=== PATIENT | male | born 1950 | race Caucasian/White ===

== ENCOUNTER 2016-12-21 11:49 | Inpatient (IN) | payer OTHER, MEDICARE ==
[~2016-12-21] VITALS: Ht 185.4 cm; Wt 105.9 kg
[2016-12-21 12:47] LABS: BASOPHILS 0.1 % (0.0-2.0); EOSINOPHILS 0.3 % (0-7); HEMATOCRIT 36.6 % (42.0-54.0); IMMATURE GRANULOCYTES 0.6 % (0-5); LYMPHOCYTES 9.5 % (15-50); MCH 28.7 pg (26.0-34.0); MCHC 32.8 g/dL (31.0-37.0); MCV 87.6 fL (80.0-100.0); MONOCYTES 8.1 % (2-11); NEUTROPHILS 81.4 % (40-80); PLATELET COUNT 192 10x3/uL (130-400); RBC 4.18 10x6/uL (4.20-6.10); RDW 12.7 % (11.5-14.5); WBC 9.1 10x3/uL (4.8-10.8)
[2016-12-21 13:15] LABS: APTT 32.5 SECONDS (22.8-39.4); INR 1.14 (0.85-1.17); PROTIME 14.5 SECONDS (11.6-15.0)
[2016-12-21 13:17] LABS: ALBUMIN 3.3 g/dL (3.4-5.0); ALKALINE PHOSPHATASE 168 U/L (46-116); ALT (SGPT) 651 U/L (10-68); BILIRUBIN - TOTAL 0.62 mg/dL (0.2-1.3); CALC OSMOLALITY 280 mosm/kg (275-300); CALCIUM 8.8 mg/dL (8.5-10.1); CARBON DIOXIDE 24.2 mmol/L (21.0-32.0); CHLORIDE - SERUM 104 mmol/L (98-107); CREATININE - SERUM 1.7 mg/dL (0.6-1.3); GLUCOSE 176 mg/dL (74-106); PROTEIN - SERUM 6.9 g/dL (6.4-8.2); SODIUM 136 mmol/L (136-145); UREA NITROGEN 27 mg/dL (7-18); eGFR NON AFRICAN AMERICAN 43 mL/min (90-120)
[2016-12-21 13:24] LABS: TROPONIN-I < 0.017 ng/mL (0.000-0.060)
[2016-12-21 18:10] VITALS: BP 151/83; Ht 185.4 cm; Wt 105.9 kg
[2016-12-21 19:00] VITALS: BP 156/95
[2016-12-21 19:27] LABS: % SATURATION 15 % (15-55); IRON 45 ug/dl (35-150); TOTAL IRON BIND CAPACITY 291 ug/dl (260-445); UNSAT IRON BIND CAPACITY 246 ug/dl (150-375)
--- NOTE | 2016-12-21 19:41 | NUR ---
PATIENT BEING TAKEN DOWN TO X-RAY. PATIENT REQUESTED HIS INSULIN AND A SANDWICH WHEN HE COMES BACK.
[2016-12-21 19:46] LABS: APPEARANCE CLEAR (CLEAR); BACTERIA FEW /hpf (NONE SEEN); BILIRUBIN NEGATIVE (NEGATIVE); COLOR YELLOW (YELLOW); EPITHELIAL CELLS 0-5 /hpf (0-5); GLUCOSE NEGATIVE (NEGATIVE); KETONE NEGATIVE (NEGATIVE); LEUKOCYTE ESTERASE NEGATIVE (NEGATIVE); NITRITE NEGATIVE (NEGATIVE); PROTEIN 1+ mg/dL (NEGATIVE); UROBILINOGEN NORMAL (NORMAL); WHITE CELLS - URINE 0-5 /hpf (0-5)
[2016-12-21 21:30] LABS: CKMB 5.8 U/L (0.0-3.6); CREATINE KINASE 462 UL (21-232)
[2016-12-21 21:35] LABS: TROPONIN-I < 0.017 ng/mL (0.000-0.060)
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
[2016-12-22] VITALS (8 sets, daily range): BP systolic 168–197; BP diastolic 87–102
[2016-12-22 02:23] LABS: CKMB 3.6 U/L (0.0-3.6); CREATINE KINASE 424 UL (21-232)
[2016-12-22 02:36] LABS: TROPONIN-I < 0.017 ng/mL (0.000-0.060)
[2016-12-22 05:15] LABS: BASOPHILS 0.1 % (0.0-2.0); EOSINOPHILS 0.4 % (0-7); HEMATOCRIT 35.3 % (42.0-54.0); HEMOGLOBIN 11.5 g/dL (13.5-17.5); IMMATURE GRANULOCYTES 0.2 % (0-5); LYMPHOCYTES 18.9 % (15-50); MCH 28.7 pg (26.0-34.0); MCHC 32.6 g/dL (31.0-37.0); MEAN PLATELET VOLUME 10.1 fL (7.4-10.4); MONOCYTES 12.1 % (2-11); NEUTROPHILS 68.3 % (40-80); PLATELET COUNT 211 10x3/uL (130-400); RBC 4.01 10x6/uL (4.20-6.10); RDW 12.5 % (11.5-14.5); WBC 9.3 10x3/uL (4.8-10.8)
[2016-12-22 05:43] LABS: ALBUMIN 2.9 g/dL (3.4-5.0); ANION GAP 13.7 mmol/L (8-16); BILIRUBIN - TOTAL 0.47 mg/dL (0.2-1.3); CALCIUM 8.8 mg/dL (8.5-10.1); CARBON DIOXIDE 25.3 mmol/L (21.0-32.0); CREATININE - SERUM 1.7 mg/dL (0.6-1.3); PROTEIN - SERUM 6.5 g/dL (6.4-8.2)
--- NOTE | 2016-12-22 07:00 | NUR ---
REPORT RECEIVED FROM ENFORCEMENT MANAGER NURSE. CALL LIGHT IN REACH.
[2016-12-22 08:15] LABS: CKMB 2.6 U/L (0.0-3.6); CREATINE KINASE 402 UL (21-232)
[2016-12-22 08:16] LABS: TROPONIN-I < 0.017 ng/mL (0.000-0.060)
[2016-12-22] MEDS ORDERED: AUGMENTIN 500-11 TA1 PO (09:52)
[2016-12-22] MEDS ORDERED: MAXITROL EYE DRO5 ML EACH EYE (09:53)
[2016-12-22] MEDS ORDERED: PHENERGAN25 M1 PO (09:54)
[2016-12-22] MEDS ORDERED: MEDROL DOSE PACK4 MG PO (09:55)
[2016-12-22] MEDS ORDERED: MECLIZINE HCL25 MG PO (09:55)
[2016-12-22] MEDS ORDERED: [UNRECOGNIZED DRUG - OTHER] RC (09:55)
[2016-12-22] MEDS ORDERED: DIFLUCAN200 MG PO (09:56)
[2016-12-22] MEDS ORDERED: TRIAMCINOLONE A60 M1 TP (09:57)
[2016-12-22] MEDS ORDERED: CHERATUSSIN AC473 ML PO (09:57)
[2016-12-22] MEDS ORDERED: ZITHROMAX TRI-500 MG PO (09:58)
[2016-12-22] MEDS ORDERED: ULTRAM50 MG PO (09:58)
[2016-12-22] MEDS ORDERED: ADVIL COLD & SI1 TAB PO (09:58)
--- NOTE | 2016-12-22 09:58 | NUR ---
ASSESSMENT COMPLETED. SCDs TO BLE. MED LIST OBTAINED FROM DR. PENA'S OFFICE. WILL GO OVER EACH MED ONE BY ONE WITH PATIENT. CALL LIGHT IN REACH. WILL CONTINUE WITH PLAN OF CARE.
[2016-12-22] MEDS ORDERED: LOMOTIL TABLET1 TAB PO (09:59)
[2016-12-22] MEDS ORDERED: ZOFRAN4 MG PO (09:59)
[2016-12-22] MEDS ORDERED: CELEXA20 MG PO (10:00)
[2016-12-22] MEDS ORDERED: CYCLOBENZAPRINE10 MG PO (10:00)
[2016-12-22] MEDS ORDERED: ZOFRAN ODT4 MG/UDTAB PO (10:00)
[2016-12-22] MEDS ORDERED: HUMULIN 70100 UNIT/1 SC ×2 (10:01→10:02)
[2016-12-22] MEDS ORDERED: ZOFRAN8 MG PO (10:01)
[2016-12-22] MEDS ORDERED: NEURONTIN 300300 MG PO (10:02)
[2016-12-22] MEDS ORDERED: PRINIVIL20 MG PO ×2 (10:03)
[2016-12-22] MEDS ORDERED: NIFEDIPINE ER60 MG PO ×2 (10:03→12:40)
[2016-12-22] MEDS ORDERED: BAYER CHEWABLE81 MG PO (10:04)
--- NOTE | 2016-12-22 10:14 | NUR ---
C/O PAIN OF 7. NORCO 5 MG PO. DESIREE RICHARDS, IN ROOM. CALL LIGHT IN REACH.
--- NOTE | 2016-12-22 10:19 | NUR ---
IS GIVEN TO PATIENT AND EXPLAINED USE WITH RETURN DEMONSTRATION.
--- NOTE | 2016-12-22 11:10 | NUR ---
HOME MEDS DISCUSSED WITH PATIENT THOROUGHLY AND MED LIST CORRECTED AND UPDATED PER PATIENT'S REQUEST. STATES MOST OF THE MEDS FROM MD OFFICE WASN'T CORRECT.
[2016-12-22] MEDS ORDERED: OMEPRAZOLE20 M1 PO (12:07)
[2016-12-22] MEDS ORDERED: LIPITOR10 MG PO (12:07)
--- NOTE | 2016-12-22 13:14 | NUR ---
MORPHINE 2 MG SIVP PER C/O PAIN OF 7. BP MEDS PO. 45 UNITS 70/30 SUBQ TO LEFT ARM. BED ALARM TURNED ON. WILL PLACE LIDOCAINE PATCH ON AFTER PAIN MED KICKS IN PER PATIENT REQUEST. CALL LIGHT IN REACH.
--- NOTE | 2016-12-22 14:20 | NUR ---
PATIENT AWAKE, ALERT AND ORIENTED X'S 4. RESPIRATIONS ARE EVEN AND UNLABORED ON ROOM AIR. NO SIGNS OF DISTRESS NOTED. CNAS ARE IN ROOM CLEANING UP PATIENT AND CHANGING HIS LINENS. PATIENT DENIES NEEDS AT THIS TIME.
--- NOTE | 2016-12-22 14:26 | NUR ---
BED BATH GIVEN PER CNAs. FLEXERIL 10 MG PO. STILL REFUSING TO TURN OR GET UP.
--- NOTE | 2016-12-22 14:32 | NUR ---
GABAPENTIN PO. CALLED PT TO SEE IF THEY CAN ASSIST WITH ORTHOSTATIC BP BECAUSE PATIENT IS REFUSING TO ALLOW US TO DO IT.
--- NOTE | 2016-12-22 15:27 | NUR ---
Rehab Prescreening Consult recieved and the chart has been reviewed. According to the record [facility]. The [place] will not cover inpatient rehab at [facility]. I spoke to Linh in ER registration who says she will look into it to determine if patient has another payor source. [place] Valerio RN Clinical Liaison, Rehab
--- NOTE | 2016-12-22 15:39 | NUR ---
ORTHOSTATIC BPs DONE WITH ASSISTANCE FROM PT.
--- NOTE | 2016-12-22 16:48 | NUR ---
CM SPOKE WITH [facility] REGARDING BED AVAILABILITY FOR PATIENT. JASON WAS INSTRUCTED TO CALL IN AM AND ASK FOR BED CONTROL (ARIANE). ([phone])
--- NOTE | 2016-12-22 17:00 | NUR ---
FSBS 182. HUMALOG 2 UNITS AND 25 UNITS 70/30 SUBQ TO LEFT ARM. CALL LIGHT IN REACH.
--- NOTE | 2016-12-22 18:02 | NUR ---
NO CHANGES IN INITIAL ASSESSMENT. SCDs TO BLE. BED ALARM ON. CALL LIGHT IN REACH. WILL CONTINUE WITH PLAN OF CARE.
--- NOTE | 2016-12-22 19:30 | NUR ---
PATIENT RESTING IN BED AND DENIES NEEDS AT THIS TIME. BED IN LOWEST POSITION AND CALL LIGHT WITHIN REACH.
[2016-12-23] VITALS: BP 171/92
[2016-12-23 04:00] VITALS: BP 152/89
[2016-12-23 05:48] LABS: BASOPHILS 0.1 % (0.0-2.0); EOSINOPHILS 0.6 % (0-7); HEMATOCRIT 36.2 % (42.0-54.0); HEMOGLOBIN 11.8 g/dL (13.5-17.5); IMMATURE GRANULOCYTES 0.2 % (0-5); LYMPHOCYTES 14.8 % (15-50); MCH 28.9 pg (26.0-34.0); MCHC 32.6 g/dL (31.0-37.0); MCV 88.5 fL (80.0-100.0); MEAN PLATELET VOLUME 10.1 fL (7.4-10.4); NEUTROPHILS 71.3 % (40-80); PLATELET COUNT 216 10x3/uL (130-400); RBC 4.09 10x6/uL (4.20-6.10); RDW 12.7 % (11.5-14.5); WBC 10.5 10x3/uL (4.8-10.8)
[2016-12-23 06:44] LABS: ANION GAP 16.2 mmol/L (8-16); BILIRUBIN - TOTAL 1.27 mg/dL (0.2-1.3); CALCIUM 8.6 mg/dL (8.5-10.1); CARBON DIOXIDE 22.7 mmol/L (21.0-32.0); CREATININE - SERUM 1.6 mg/dL (0.6-1.3); POTASSIUM - SERUM 4.9 mmol/L (3.5-5.1); PROTEIN - SERUM 6.2 g/dL (6.4-8.2)
--- NOTE | 2016-12-23 07:30 | NUR ---
REPORT RECEIVED FROM LABORATORY DEVELOPMENT TECHNICIAN NURSE. CALL LIGHT IN REACH.
--- NOTE | 2016-12-23 07:36 | NUR ---
45 units nph given per mar, sanjeev well, denies need, cl in reach
[2016-12-23 08:15] VITALS: BP 187/84
--- NOTE | 2016-12-23 08:48 | NUR ---
12/23/2016 8:44 CM: Case Management Phone call to [facility] - spoke with Norah. Patient remains on their list for transfer. No bed currently available. They will contact nursing unit when/if bed becomes available. No need for daily phone calls to [facility].
--- NOTE | 2016-12-23 09:08 | NUR ---
ASSESSMENT COMPLETED. NORCO PO WITH AM MEDS ADMINISTERED. SCDs TO BLE. BED ALARM ON. BECAME NUASEATED AFTER PT TRIED TO GET HIM UP SO NEDAAN ADMINISTERED IVP. CALL LIGHT IN REACH. WILL CONTINUE WITH PLAN OF CARE.
[2016-12-23 10:20] LABS: FOLATE (FOLIC ACID) - SERUM 11.6 ng/mL (>3.0)
--- NOTE | 2016-12-23 10:20 | NUR ---
pt seen and assessed for PROPERTY CONSULTANT at 1015. currently up in chair at bedside. states uncomfortable but tolerable. scds on bilat. call light in reach.
[2016-12-23] MEDS ORDERED: LIDODERM 5 %1 PATCH TRANSDERM (11:58)
--- NOTE | 2016-12-23 12:20 | NUR ---
IN ROOM VISITING PATIENT AT THIS TIME. CALL LIGHT IN REACH.
[2016-12-23 12:26] VITALS: BP 157/87
--- NOTE | 2016-12-23 12:59 | NUR ---
12/23/2016 12:57 DCP: Discharge Planning Rec'd call from [place] with inpatient rehab - patient has been evaluated and accepted. Waiting bed assignment.
--- NOTE | 2016-12-23 13:40 | NUR ---
NO NEEDS VOICED AT THIS TIME. WILL GO TO REHAB WHEN THEY GET A ROOM AVAILABE. PATIENT IS AWARE.
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
--- NOTE | 2016-12-23 15:18 | NUR ---
GABAPENTIN AND NORCO PO. CALL LIGHT IN REACH.
[2016-12-23 15:40] VITALS: BP 163/88
--- NOTE | 2016-12-23 17:19 | NUR ---
INUSLIN GIVEN PER ORDER. ON BEDPAN AT THIS TIME. CALL LIGHT IN REACH.
--- NOTE | 2016-12-23 18:20 | NUR ---
REPORT CALLED TO CYRUS GRAVES, IN REHAB.
--- NOTE | 2016-12-23 18:47 | NUR ---
DC'D TO REHAB VIA WC.
--- NOTE | 2016-12-25 08:47 | CN ---
PATIENT NAME:FOUZIA MIRANDA MEDICAL RECORD: [id number] : 46 LOCATION:[facility] ADMIT DATE: 12/22/16 ACCOUNT: [id number] CONSULTING PHYSICIAN: NICOLE ESTRADA MD REFERRING PHYSICIAN: DENIA GOMEZ M.D. DATE OF CONSULTATION: 12/22/2016 Cardiology Consultation DIAGNOSIS: Syncope. HISTORY OF PRESENT ILLNESS: This is a gentleman with no previous cardiac history. He had an episode of syncope. This is not his first episode of syncope. He has had 2 in the past. He is followed at the [facility] for this. There is no clear diagnosis as the etiology of the syncope. He did not have any chest pain, chest discomfort or palpitations prior to the syncope. Troponin is normal. EKG is with nonspecific ST-T abnormalities. OVERALL IMPRESSION: Syncope. I do not think this is cardiac in nature. At this time, no other cardiac workup or treatment is necessary. TRANSINT:[id number] Voice Confirmation ID: [id number] DOCUMENT ID: [id number] NICOLE ESTRADA MD at 0847 CC: [id number] DICTATION DATE: 12/22/16 0903 TRAIN CALLER: 12/22/16 0912 DIS IN 12/23/16 [place] [id number] [place] [address]
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
== END 2016-12-23 18:47 | DRG 184 ==
LOC: D.ER 11:49 → D.MS 16:29 → OBSVTIME 16:30 → D.MS 12-22 12:45
PROVIDERS: Emergency Medicine Emergency Medical Services; ADMIT Family Medicine
DX: S22.42XA Multiple fractures of ribs, left side, initial encounter for closed fracture (principal); N17.9 Acute kidney failure, unspecified; R55 Syncope and collapse; D64.9 Anemia, unspecified; R74.0 Nonspecific elevation of levels of transaminase and lactic acid dehydrogenase [LDH]; R74.8 Abnormal levels of other serum enzymes; I10 Essential (primary) hypertension; K21.9 Gastro-esophageal reflux disease without esophagitis; E11.65 Type 2 diabetes mellitus with hyperglycemia; V49.9XXA Car occupant (driver) (passenger) injured in unspecified traffic accident, initial encounter

== ENCOUNTER 2016-12-23 17:03 | Inpatient (IN) | payer OTHER, MEDICARE ==
[~2016-12-23] VITALS: Ht 185.4 cm; Wt 107.0 kg
[~2016-12-23 17:03] MED LIST: ADVIL COLD & SI1 TAB PO; AUGMENTIN 500-11 TA1 PO; BAYER CHEWABLE81 MG PO; CELEXA20 MG PO; CHERATUSSIN AC473 ML PO; CYCLOBENZAPRINE10 MG PO; DIFLUCAN200 MG PO; HUMULIN 70100 UNIT/1 SC; LIDODERM 5 %1 PATCH TRANSDERM; LIPITOR10 MG PO; LOMOTIL TABLET1 TAB PO; MAXITROL EYE DRO5 ML EACH EYE; MECLIZINE HCL25 MG PO; MEDROL DOSE PACK4 MG PO; NEURONTIN 300300 MG PO; NIFEDIPINE ER60 MG PO; OMEPRAZOLE20 M1 PO; PHENERGAN25 M1 PO; PRINIVIL20 MG PO; TRIAMCINOLONE A60 M1 TP; ULTRAM50 MG PO; ZITHROMAX TRI-500 MG PO; ZOFRAN ODT4 MG/UDTAB PO; ZOFRAN4 MG PO; ZOFRAN8 MG PO; [UNRECOGNIZED DRUG - OTHER] RC
[2016-12-23 19:00] VITALS: BP 156/77
--- NOTE | 2016-12-23 19:00 | NUR ---
PT ARRIVED ON UNIT ACCOMPANIED BY HOSPITAL STAFF. PT IS ALERT, ORIENTED X 4, HAS DIFFICULTY TRANSFERRING FROM W/C TO BED. PT STATES HE HAS A GREAT AMOUNT OF PAIN AND FEELS VERY WEAK, RESPIRATIONS REGULAR AND UNLABORED, CONVERSIVE, STATES HE IS READY FOR REHAB. VISITING WITH NEIGHBOR.
--- NOTE | 2016-12-23 22:00 | NUR ---
ASSESSMENT AND PT HISTORY COMPLETED, PT VERY CONVERSIVE, FORMS SIGNED, PT STATES HE DOES WEAR A KNEE BRACE TYPICALLY AT HOME, HOWEVER DOESN'T HAVE IT WITH HIM. pT HAS SOME STRUGGLES WITH PRONUNCTIATION OF WORDS OR STATING THE CORRECT TERM. PT COMPENSATES. AT TIMES DIFFICULT TO KEEP PATIENT FOCUSED ON ADMISSION PROCESS.
[2016-12-23 22:37] VITALS: BP 156/77
--- NOTE | 2016-12-24 03:07 | NUR ---
PT USES URINAL, STATES HAS MORE FREQUENCY RELATED TO IMPLANT. PT CONVERSIVE.
--- NOTE | 2016-12-24 06:33 | NUR ---
PT RESTING QUIETLY, PT STATES HE FEELS HE NEEDS SOMETHING FOR PAIN. NO OTHER PAIN MED ORDERED, LEFT MESSAGE FOR PHYSICIAN.
--- NOTE | 2016-12-24 07:23 | NUR ---
RESTING QUIETLY IN BED. CALL LIGHT IN REACH
[2016-12-24 07:59] LABS: BASOPHILS 0.1 % (0.0-2.0); EOSINOPHILS 0.9 % (0-7); HEMATOCRIT 35.5 % (42.0-54.0); HEMOGLOBIN 11.6 g/dL (13.5-17.5); IMMATURE GRANULOCYTES 0.3 % (0-5); LYMPHOCYTES 14.6 % (15-50); MCH 28.7 pg (26.0-34.0); MCHC 32.7 g/dL (31.0-37.0); MCV 87.9 fL (80.0-100.0); MEAN PLATELET VOLUME 10.1 fL (7.4-10.4); MONOCYTES 9.3 % (2-11); NEUTROPHILS 74.8 % (40-80); PLATELET COUNT 214 10x3/uL (130-400); RBC 4.04 10x6/uL (4.20-6.10); RDW 12.6 % (11.5-14.5); WBC 10.5 10x3/uL (4.8-10.8)
--- NOTE | 2016-12-24 08:00 | NUR ---
PT RESTING IN BED WITH EYES OPEN CALL LIGHT IN REACH WILL MONITER PT EATING BREAKFAST REFUSES TO SET UP PAST 20 DEGREES SAYS IT HURTS TO BAD
[2016-12-24 08:20] VITALS: BP 184/86
[2016-12-24 08:21] LABS: ALBUMIN 2.8 g/dL (3.4-5.0); ANION GAP 14.8 mmol/L (8-16); BILIRUBIN - TOTAL 0.44 mg/dL (0.2-1.3); CALCIUM 8.5 mg/dL (8.5-10.1); CARBON DIOXIDE 23.4 mmol/L (21.0-32.0); CREATININE - SERUM 1.5 mg/dL (0.6-1.3); POTASSIUM - SERUM 5.2 mmol/L (3.5-5.1); PROTEIN - SERUM 5.8 g/dL (6.4-8.2)
--- NOTE | 2016-12-24 13:17 | NUR ---
PT RESTING IN BED WITH EYES OPEN CALL LIGHT IN REACH WILL MONITER
[2016-12-24 14:59] VITALS: Ht 185.4 cm; Wt 107.0 kg
--- NOTE | 2016-12-24 18:41 | NUR ---
PT RESTING IN BED WITH EYES OPEN CALL LIGHT IN REACH WILL MONITER
[2016-12-24 19:00] VITALS: BP 147/99
--- NOTE | 2016-12-24 21:20 | NUR ---
PT TOOK HS MEDS WITHOUT DIFFICULTY. PT DENIES NEEDS AT THIS TIME. BED LOW. CL IN REACH.
--- NOTE | 2016-12-25 01:15 | NUR ---
PT RESTING, EYES CLOSED. BED LOW. CLIN [facility].
[2016-12-25 07:02] LABS: BASOPHILS 0.1 % (0.0-2.0); EOSINOPHILS 0.8 % (0-7); HEMOGLOBIN 13.2 g/dL (13.5-17.5); IMMATURE GRANULOCYTES 0.3 % (0-5); MCH 29.3 pg (26.0-34.0); MCHC 33.8 g/dL (31.0-37.0); MCV 86.7 fL (80.0-100.0); MONOCYTES 9.3 % (2-11); NEUTROPHILS 68.5 % (40-80); RDW 12.6 % (11.5-14.5)
[2016-12-25 07:10] LABS: PLATELET COUNT 270 10x3/uL (130-400); WBC 14.2 10x3/uL (4.8-10.8)
[2016-12-25 07:16] LABS: ANION GAP 16.6 mmol/L (8-16); CALCIUM 9.5 mg/dL (8.5-10.1); POTASSIUM - SERUM 4.6 mmol/L (3.5-5.1)
--- NOTE | 2016-12-25 07:30 | NUR ---
RESTING QUIETLY IN BED CALL LIGHT IN REACH
--- NOTE | 2016-12-25 08:15 | NUR ---
PT RESTING IN BED WITH EYES OPEN CALL LIGHT IN REACH WILL MONITER
[2016-12-25 08:20] VITALS: BP 178/91
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
--- NOTE | 2016-12-25 12:15 | NUR ---
PT RESTING IN BED WITH EYES OPEN CALL LIGHT IN REACH WILL MONITER
--- NOTE | 2016-12-25 17:41 | NUR ---
PT RESTING IN BED WITH EYES OPEN CALL LIGHT IN REACH NO PROBLEMS WILL MONITER
[2016-12-25 19:30] VITALS: BP 123/64
--- NOTE | 2016-12-25 22:00 | NUR ---
PT TOOK HS MEDS WITHOUT DIFFICULYT. PT REQ AND REC'D PRN PAIN MEDICATION PER ORDERS AT THIS TIME. PT STATES HE HAS NOT HAD ANY MORE HALLUCINATIONS TODAY AND IS READY FOR BED. WCTM. BED LOW. CL IN REACH.
--- NOTE | 2016-12-26 02:00 | NUR ---
PT RESTING, EYES CLOSED. BED LOW. CL IN REACH. WCTM.
[2016-12-26 07:00] VITALS: BP 164/80
--- NOTE | 2016-12-26 07:00 | NUR ---
Pt. was received at the beginning of this shift sitting in wheelchair in room. Pt. doesn't voice any complaints or concerns. Vital signs: Temp. 98.8, pulse 95, resp. 18, b/p 164/80, 02Sat. 95%. He is friendly and socializes with his roommate very well. Call light is in reach. No signs of any discomfort or distress. Will continue to monitor and assist prn with adl's.
--- NOTE | 2016-12-26 17:26 | NUR ---
Pt. has an uneventful day today. He went to therapy to participated well. Blood sugar levels were checked bid. Pt. stable and monitored.
--- NOTE | 2016-12-26 18:04 | NUR ---
Pt. received help with a shower today. Complete bed change done as well.
--- NOTE | 2016-12-26 19:35 | NUR ---
IN BED ALERT. TALKING ON PHONE. NO C/O AT THIS TIME.
--- NOTE | 2016-12-26 21:20 | NUR ---
AWAKE. DENIES NEEDS.
[2016-12-26 22:35] VITALS: BP 136/75
--- NOTE | 2016-12-26 22:35 | NUR ---
ASSESSMENT AND HS MEDS COMPLETE. GAVE PATIENT NORCO 10/325 X1 TAB PO FOR PAIN LEVEL OF 6/10 IN LEFT RIBS AND BACK.
--- NOTE | 2016-12-27 | NUR ---
PATIENT AWAKE, TALKING TO HIS ROOMMATE. ENCOURAGE BOTH TO TRY TO GO TO SLEEP.
--- NOTE | 2016-12-27 02:05 | NUR ---
RESTING QUIETLY, EYES CLOSED.
--- NOTE | 2016-12-27 04:50 | NUR ---
RESTING IN BED, EYES CLOSED. RESPIRING QUIETLY.
--- NOTE | 2016-12-27 06:45 | NUR ---
RESTING IN BED, EYES CLOSED.
--- NOTE | 2016-12-27 07:30 | NUR ---
PATIENT AWAKE, ALERT AND ORIENTED X'S 4. ASSESSMENT COMPLETED AT THIS TIME. ASSISTED PATIENT FROM THE BED TO THE WHEELCHAIR PER PATIENT REQUEST. PATIENT REQUIRED MINIMUM ASSISTANCE. PATIENT REQUESTED TO SIT IN THE WHEELCHAIR. POSITIONED BEDSIDE TABLE IN FRONT OF PATIENT CALL LIGHT IN REACH. PATIENT DENIES FURTHER NEEDS AT THIS TIME
[2016-12-27 08:00] VITALS: BP 147/73
--- NOTE | 2016-12-27 12:07 | NUR ---
PATIENT SITTING UP IN THE CHAIR EATING LUNCH. STATED HE WANTS TO GO BACK TO BED AFTER LUNCH. TOLD PATIENT TO CALL ME WHEN HE FINISHES EATING.
--- NOTE | 2016-12-27 12:45 | NUR ---
ASSISTED PATIENT FROM THE WHEELCHAIR BACK TO BED. BED IN LOWEST POSITION, CALL LIGHT IN REACH. BED RAILS UP X'S 2. PATIENT DENIES NEEDS. HOB 40 DEGREES.
--- NOTE | 2016-12-27 19:00 | NUR ---
SITTING UP IN W/C AT BEDSIDE. DENIES NEEDS.
[2016-12-27 20:20] VITALS: BP 119/77
--- NOTE | 2016-12-27 20:20 | NUR ---
ASSESSMENT AND HS MEDS COMPLETEREMAINS UP IN W/C AT BEDSIDE. DENIES NEEDS.
--- NOTE | 2016-12-27 21:54 | NUR ---
ASSISTED PATIENT TO TRANSFER W/C TO BED. HOB UP 30 DEGREES. DENIES FURTHER NEEDS.
--- NOTE | 2016-12-27 23:45 | NUR ---
RESTING IN BED, EYES CLOSED.
--- NOTE | 2016-12-28 01:50 | NUR ---
RESTING IN BED, EYES CLOSED. NO DISTRESS NOTED.
--- NOTE | 2016-12-28 04:00 | NUR ---
RESTING QUIETLY IN BED, EYES CLOSED. RESPIRATION ARE UNLABORED.
--- NOTE | 2016-12-28 05:39 | NUR ---
RESTING IN BED, EYES CLOSED. FSBS @ 0505 WAS 166. PATIENT TO RECEIVE SCHEDULED NOVOLIN 70/30 INSULIN ON DAY SHIFT @ 0730.
[2016-12-28 06:19] LABS: BASOPHILS 0.2 % (0.0-2.0); EOSINOPHILS 2.6 % (0-7); HEMATOCRIT 32.3 % (42.0-54.0); HEMOGLOBIN 10.7 g/dL (13.5-17.5); IMMATURE GRANULOCYTES 0.2 % (0-5); LYMPHOCYTES 19.9 % (15-50); MCH 29.1 pg (26.0-34.0); MCHC 33.1 g/dL (31.0-37.0); MCV 87.8 fL (80.0-100.0); MONOCYTES 11.1 % (2-11); PLATELET COUNT 299 10x3/uL (130-400); RBC 3.68 10x6/uL (4.20-6.10); RDW 12.8 % (11.5-14.5); WBC 9.3 10x3/uL (4.8-10.8)
[2016-12-28 06:43] LABS: CALCIUM 8.7 mg/dL (8.5-10.1); CARBON DIOXIDE 21.8 mmol/L (21.0-32.0); POTASSIUM - SERUM 4.8 mmol/L (3.5-5.1)
--- NOTE | 2016-12-28 07:00 | NUR ---
Pt was received at the beginning of this shift sitting in wheelchair in room. Awake and oriented x 3. Vital signs: Temp. 98.6, pulse 80, resp. 16, b/p 142/88, 02Sat. 98%. No verbal complaints or concerns at this time. Stable condition observed. Will continue to monitor and assist with adl's prn. Call light in reach.
[2016-12-28 10:34] VITALS: BP 142/88
--- NOTE | 2016-12-28 14:44 | NUR ---
Pt. had a shower this morning with OT assisting him. Complete linen change done. Pt. is alert and oriented x 3. He is having an uneventful day. Friendly and cooperative. Blood sugar level monitored closely.
--- NOTE | 2016-12-28 18:32 | NUR ---
Pt. has had a good day. He does complain of great pain in his ribs when he goes from a lying position to a sitting up position in bed. He doesn't ask for any pain medication though. Call light is in reach.
[2016-12-28 19:00] VITALS: BP 136/68
--- NOTE | 2016-12-28 19:10 | NUR ---
IN BED, HOB UP 20 DEGREES. DENIES NEEDS. EMPTIED 450ML FROM BEDSIDE URINAL.
--- NOTE | 2016-12-28 20:35 | NUR ---
ASSESSMENT AND HS MEDS COMPLETE. DENIES CURRENT NEEDS.
--- NOTE | 2016-12-28 22:45 | NUR ---
REMAINS AWAKE. EMPTIED HIS URINAL.
--- NOTE | 2016-12-28 23:45 | NUR ---
AWAKE. DENIES DISCOMFORT. URINAL WAS JUST EMPTIED BY STAFF MEMBER.
--- NOTE | 2016-12-29 02:00 | NUR ---
IN BED, AWAKE. EMPTIED 425ML FROM BEDSIDE URINAL.
--- NOTE | 2016-12-29 05:30 | NUR ---
IN BED, AWAKE. DENIES NEEDS.
--- NOTE | 2016-12-29 07:30 | NUR ---
RESTING QUIETLY IN BED. CALL LIGHT IN REACH
--- NOTE | 2016-12-29 07:30 | NUR ---
INTRODUCUDE SELF TO PT, ASSISTED PT TO BR AND BACK TO BED VIA WHEELCHAIR WITH MOD ASSIST, PT TOLERATED WELL, BREAKFAST SERVED, PT STATES NO PAIN AT THIS TIME, WILL CONTINUE TO MONITOR, CALL LIGHT WITHIN REACH.
[2016-12-29 08:16] VITALS: BP 193/93
--- NOTE | 2016-12-29 09:30 | NUR ---
MORNING MEDICATION GIVEN, PT TOLERATED WELL, PT STATES NO PAIN AT THIS TIME, WILL CONTINUE TO MONITOR, CALL LIGHT WITHIN REACH.
--- NOTE | 2016-12-29 10:56 | NUR ---
Nutrition Follow Up: Chart reviewed. Pt is eating 93% meal avg on a Diabetic diet. +BM 12/27/16. Labs noted - Glucose elevated. Meds noted including Novolin. Pt with excellent po intake. Rec continue current diet. Will continue to provide selective menus and honor food preferences. RD following.
--- NOTE | 2016-12-29 12:04 | NUR ---
LUNCH TRAYS DELIVERED, PT STATES NO NEEDS AT THIS TIME, WILL CONTINUE TO MONITOR, CALL LIGHT WITHIN REACH.
--- NOTE | 2016-12-29 14:20 | NUR ---
PT IN THERAPY, AFTERNOON MEDICATION GIVEN, PT TOLERATED WELL, WILL CONTINUE TO MONITOR.
--- NOTE | 2016-12-29 16:01 | NUR ---
PT RESTING IN BED, RESPIRATIONS EVEN, SIDE RAILS UP X'S 2, BED IN LOW POSITION, CALL LIGHT WITHIN REACH, WILL CONTINUE TO MONITOR.
--- NOTE | 2016-12-29 17:33 | NUR ---
MEDICATION GIVEN, PT EATING DINNER, PT STATES NO NEEDS AT THIS TIME, WILL CONTINUE TO MONITOR, CALL LIGHT WITHIN REACH.
--- NOTE | 2016-12-29 19:08 | NUR ---
PT RESTING QUIETLY IN SUPINE POSITION, PT STATES HIS PAIN IS LYING DOWN AND GETTING UP. PT STATES TRANSFERS ARE DIFFICULT. PT STATES HE WAS UP QUITE AWHILE. HE STATES LYING DOWN IS MUCH MORE COMFORTABLE. RESPIRATIONS REGULAR AND UNLABORED. NO S/S OF ACUTE DISTRESS.
[2016-12-29 19:35] VITALS: BP 158/79
--- NOTE | 2016-12-29 21:00 | NUR ---
PT TOOK HS MEDS WITHOUT DIFFICULTY. WCTM. BED LOW. CL IN REACH.
--- NOTE | 2016-12-29 23:55 | NUR ---
PT RESTING, EYES CLOSED. BED LOW. CLIN REACH.
--- NOTE | 2016-12-30 01:59 | NUR ---
PT LYING IN BED WATCHING TV. PT DENIES NEEDS AT THIS TIME. BED LOW. CL IN REACH.
--- NOTE | 2016-12-30 04:38 | NUR ---
PT RESTING, EYES CLOSED. BED LOW. CL IN REACH.
[2016-12-30 06:21] LABS: BASOPHILS 0.1 % (0.0-2.0); EOSINOPHILS 2.3 % (0-7); HEMATOCRIT 33.7 % (42.0-54.0); HEMOGLOBIN 11.2 g/dL (13.5-17.5); IMMATURE GRANULOCYTES 0.2 % (0-5); LYMPHOCYTES 26.2 % (15-50); MCH 28.7 pg (26.0-34.0); MCHC 33.2 g/dL (31.0-37.0); MCV 86.4 fL (80.0-100.0); MEAN PLATELET VOLUME 9.4 fL (7.4-10.4); MONOCYTES 8.2 % (2-11); PLATELET COUNT 343 10x3/uL (130-400); RDW 12.5 % (11.5-14.5); WBC 8.7 10x3/uL (4.8-10.8)
--- NOTE | 2016-12-30 06:28 | NUR ---
PT TOOK AM MEDS WITHOUT DIFFICULTY. PT DENIES FURTHUR NEEDS AT THIS TIME. BED LOW. CL IN REACH.
[2016-12-30 06:34] LABS: ANION GAP 15.6 mmol/L (8-16); CARBON DIOXIDE 23.2 mmol/L (21.0-32.0); CREATININE - SERUM 1.6 mg/dL (0.6-1.3); POTASSIUM - SERUM 4.8 mmol/L (3.5-5.1)
--- NOTE | 2016-12-30 07:00 | NUR ---
Pt. was received at the beginning of this shift. Stable condition observed. No verbal complaints. Vital signs: Temp. 98.0, pulse 83, resp. 15, b/p179/95, 02Sat. 97%. Will be monitoring him throughout this shift and assisting prn with adl's. Call light is in reach.
[2016-12-30 08:15] VITALS: BP 179/95
--- NOTE | 2016-12-30 15:07 | NUR ---
CARE TEAM MEETING: PATIENT TENATIVE DISCHARGE DATE IS 01/07/17. PCP IS DR. PENA. WILL CONTINUE TO FOLLOW WITH PATIENT AND WILL BE RA AT NEXT MEETING.
--- NOTE | 2016-12-30 18:29 | NUR ---
Pt. had a good day in therapy. He is cooperative and is working hard. No voiced complaints of discomfort today. Continuing to observe. Blood sugar levels were monitored too.
[2016-12-30 19:00] VITALS: BP 175/104
--- NOTE | 2016-12-30 19:15 | NUR ---
PT RESTING IN BED WATCHING TV, DENIES NEEDS. WCTM. BED LOW. CL IN REACH.
--- NOTE | 2016-12-30 20:20 | NUR ---
PT REQ AND REC'D PRN PAIN MEDICATION WITH HS MEDS. PT DENIES FURTHER NEEDS AT THIS TIME. BED LOW. CL IN REACH. WCTM.
--- NOTE | 2016-12-30 23:08 | NUR ---
PT RESTING, EYES CLOSED. BED LOW. CL IN REACH.
--- NOTE | 2016-12-31 01:46 | NUR ---
PT RESTING, EYES CLOSED. BED LOW. CLIN REACH.
--- NOTE | 2016-12-31 04:35 | NUR ---
PT RESTING, EYES CLOSED. BED LOW. CL IN [facility].
--- NOTE | 2016-12-31 06:25 | NUR ---
PT TOOK AM MEDS WITHOUT DIFFICULTY. PT DENIES NEEDS AT THIS TIME. BED LOW. CL IN REACH.
--- NOTE | 2016-12-31 07:00 | NUR ---
PT WAS RECEIVED THIS MORNING AT THE BEGINNING OF THIS SHIFT. HE IS ALERT AND ORIENTED X 3. NO COMPLAINTS VOICED. STABLE CONDITION NOTED. VITAL SIGNS; TEMP. 97.9, PULSE 76, RESP. 14, B/P 191/105, 02SAT. 98%. PT IS ASSISTED MINIMALLY WITH HIS ADL'S. WILL OBSERVE AND ASSIST NEEDED.
[2016-12-31 10:15] VITALS: BP 191/105
--- NOTE | 2016-12-31 12:00 | NUR ---
PT. ENJOYING A VISIT FROM HIS AND NIECE. NO COMPLAINTS OR CONCERNS AT THIS TIME. PT. IS DOING THERAPY VERY WELL TODAY. PT. HAD 45 UNITS OF NOVOLIN 70/30 GIVEN TO HIM THIS MORNING PER ORDER.
--- NOTE | 2016-12-31 18:09 | NUR ---
PT CONTINUES TO BE STABLE. HE LOVES TO SOCIALIZE WITH HIS ROOMMATE. SITTING UP IN WHEELCHAIR IN ROOM. NO SIGNS OF ANY PROBLEMS OR CONCERNS. CALL LIGHT CONTINUES TO BE IN REACH.
[2016-12-31 19:15] VITALS: BP 183/85
--- NOTE | 2016-12-31 19:30 | NUR ---
PT RESTING IN BED WATCHING TV AND VISITING WITH NEIGHBOR. PT DENIES NEEDS AT THIS TIME. BED LOW. C ORLIN EPSTEIN.
--- NOTE | 2016-12-31 21:00 | NUR ---
PT TOOK HS MEDS WITHOUT DIFFICULTY. PT DENIES NEEDS AT THSI TIME. BED LOW. CL IN REACH.
--- NOTE | 2017-01-01 00:07 | NUR ---
PT RESTING, EYES CLOSED. BED LOW. CL IN REACH.
--- NOTE | 2017-01-01 02:51 | NUR ---
PT RESTING, EYES CLOSED. BED LOW. CL IN REACH.
[2017-01-01 05:59] LABS: BASOPHILS 0.2 % (0.0-2.0); EOSINOPHILS 1.6 % (0-7); HEMATOCRIT 35.2 % (42.0-54.0); HEMOGLOBIN 11.7 g/dL (13.5-17.5); IMMATURE GRANULOCYTES 0.2 % (0-5); LYMPHOCYTES 20.8 % (15-50); MCHC 33.2 g/dL (31.0-37.0); MCV 87.1 fL (80.0-100.0); MEAN PLATELET VOLUME 9.3 fL (7.4-10.4); MONOCYTES 7.9 % (2-11); NEUTROPHILS 69.3 % (40-80); PLATELET COUNT 378 10x3/uL (130-400); RBC 4.04 10x6/uL (4.20-6.10); RDW 12.5 % (11.5-14.5)
[2017-01-01 06:03] LABS: WBC 12.4 10x3/uL (4.8-10.8)
[2017-01-01 06:19] LABS: ANION GAP 13.8 mmol/L (8-16); CALCIUM 8.9 mg/dL (8.5-10.1); CARBON DIOXIDE 23.8 mmol/L (21.0-32.0); CREATININE - SERUM 1.7 mg/dL (0.6-1.3); POTASSIUM - SERUM 4.6 mmol/L (3.5-5.1)
--- NOTE | 2017-01-01 06:35 | NUR ---
PT AM MEDS ADMINISTERED. PT DENIES FURTHER NEEDS. BED LOW. CL IN REACH.
--- NOTE | 2017-01-01 07:24 | NUR ---
RESTING QUIETLY IN BED CALL LIGHT IN REACH
--- NOTE | 2017-01-01 08:15 | NUR ---
PT RESTING IN BED WITH EYES OPEN CALL LIGHT IN REACH NO PROBLEMS WILL MONITER
[2017-01-01 08:53] VITALS: BP 151/95
--- NOTE | 2017-01-01 14:54 | NUR ---
PT UP IN WHEELCHAIR IN ROOM TOLERATING WELL CALL LIGHT IN REACH WILL MONITER
[2017-01-01 19:00] VITALS: BP 153/76
--- NOTE | 2017-01-01 19:00 | NUR ---
PT IN BED WITH HOB UP FOR COMFORT, WATCHING TV, PT STATES HE HAS A PAIN LEVEL OF 8/10 AND WANTS A PAIN PILL, BED IN LOWEST POSITION AND CALL LIGHT WITHIN REACH.
--- NOTE | 2017-01-01 22:50 | NUR ---
PT. IN BED WITH HOB UP FOR COMFORT WITH EYES CLOSED AND RESP. EVEN. PT. AWAKENS EASILY WHEN WALKING INTO ROOM. PT. DENIES ANY NEEDS AT THIS TIME AND HAS HIS CALL LIGHT WITHIN REACH.
--- NOTE | 2017-01-02 00:06 | NUR ---
PT IN BED WITH HOB UP FOR COMFORT, EYES CLOSED, CHEST RISING AND FALLING, URINAL EMPTIED, BED IN LOWEST POSITION AND CALL LIGHT WITHIN REACH.
--- NOTE | 2017-01-02 04:12 | NUR ---
PT IN BED WITH HOB UP FOR COMFORT, EYES CLOSED, CHEST RISING AND FALLING, URINAL EMPTIED, BED IN LOWEST POSITION AND CALL LIGHT WITHIN REACH.
[2017-01-02 07:00] VITALS: BP 131/77
--- NOTE | 2017-01-02 07:28 | NUR ---
PT SITTING IN WHEELCHAIR INTHE ROOM.
--- NOTE | 2017-01-02 08:22 | NUR ---
PT RESTING IN WHEELCHAIR IN ROOM EATING BREAKFAST CALL LIGHT IN REACH WILL MONITER
--- NOTE | 2017-01-02 12:00 | NUR ---
PT UP IN WHEELCHAIR IN ROOM CALL LIGHT IN REACH NO PROBLEMS WILL MONITER
--- NOTE | 2017-01-02 17:23 | NUR ---
PT UP IN WHEELCHAIR WITH FAMILY AT BEDSIDE CALL LIGHT IN REACH WILL MONITER
[2017-01-02 19:00] VITALS: BP 144/74
--- NOTE | 2017-01-02 19:26 | NUR ---
PT IN BED WITH HOB UP FOR COMFORT, WATCHING TV, BED IN LOWEST POSITION AND CALL LIGHT WITHIN REACH.
--- NOTE | 2017-01-02 23:26 | NUR ---
PT IN BED WATCHING TV, NO COMPLAINTS AT THIS TIME, BED IN LOWEST POSITION AND CALL LIGHT WITHIN REACH.
--- NOTE | 2017-01-03 03:26 | NUR ---
PT IN BED WITH HOB UP FOR COMFORT, EYES CLOSED, CHEST RISING AND FALLING, BED IN LOWEST POSITION AND CALL LIGHT WITHIN REACH.
--- NOTE | 2017-01-03 04:16 | NUR ---
PT REQUESTING TO SLEEP WITH OVER THE BED LIGHT ON, PT USES URINAL, EMPTIED URINAL FOR PATIENT, YELLOW URINE, RESPIRATIONS REGULAR AND UNLABORED, NO S/S OF ACUTE DISTRESS.
[2017-01-03 07:00] VITALS: BP 169/82
--- NOTE | 2017-01-03 08:31 | NUR ---
PT RESTING IN BED WITH EYES OPEN CALL LIGHT IN REACH NO PROBLEMS WILL MONITER
--- NOTE | 2017-01-03 13:33 | NUR ---
PT RESTING IN BED WITH EYES OPEN CALL LIGHT IN REACH WILL MONITER
--- NOTE | 2017-01-03 17:38 | NUR ---
PT RESTING IN BED WITH EYES OPEN CALL LIGHT IN REACH NO PROBLEMS WILL MONITER
[2017-01-03 19:00] VITALS: BP 170/88
--- NOTE | 2017-01-03 19:06 | NUR ---
PT SITTING ON SIDE OF BED, VISITING WITH VISITOR, NO COMPLAINTS AT THIS TIME, BED IN LOWEST POSITION AND CALL LIGHT WITHIN REACH.
--- NOTE | 2017-01-03 23:08 | NUR ---
PT IN BED WITH HOB UP FOR COMFORT, WATCHING TV, NO COMPLAINTS AT THIS TIME, BED IN LOWEST POSITION AND CALL LIGHT WITHIN REACH.
--- NOTE | 2017-01-04 03:58 | NUR ---
PT IN BED WITH HOB UP FOR COMFORT, EYES CLOSED, CHEST RISING AND FALLING, BED IN LOWEST POSITION AND CALL LIGHT WITHIN REACH.
--- NOTE | 2017-01-04 04:29 | NUR ---
PT RESTING, EYES CLOSED. BED LOW. CL IN REACH.
[2017-01-04 05:43] LABS: BASOPHILS 0.3 % (0.0-2.0); EOSINOPHILS 2.3 % (0-7); HEMATOCRIT 36.3 % (42.0-54.0); HEMOGLOBIN 12.7 g/dL (13.5-17.5); IMMATURE GRANULOCYTES 0.3 % (0-5); LYMPHOCYTES 22.3 % (15-50); MCV 85.8 fL (80.0-100.0); MEAN PLATELET VOLUME 9.3 fL (7.4-10.4); MONOCYTES 8.9 % (2-11); NEUTROPHILS 65.9 % (40-80); PLATELET COUNT 369 10x3/uL (130-400); RBC 4.23 10x6/uL (4.20-6.10); RDW 12.4 % (11.5-14.5); WBC 10.2 10x3/uL (4.8-10.8)
[2017-01-04 06:02] LABS: ANION GAP 14.5 mmol/L (8-16); CALCIUM 8.8 mg/dL (8.5-10.1); CARBON DIOXIDE 22.3 mmol/L (21.0-32.0); CREATININE - SERUM 1.5 mg/dL (0.6-1.3); POTASSIUM - SERUM 4.8 mmol/L (3.5-5.1)
--- NOTE | 2017-01-04 07:00 | NUR ---
PT WAS RECEIVED AT THE BEGINNING OF THIS SHIFT AWAKE AND ORIENTED X 3. PT. STABLE AND HAS NO COMPLAINTS AT THIS TIME. VITAL SIGNS; TEMP. 97.9, PULSE 82, RESP. 14, B/P 175/96, 02SAT. 98%. WILL BE MONITORING PT. AND ASSISTING PRN WITH ADL'S. CALL LIGHT IS IN REACH.
[2017-01-04 09:17] VITALS: BP 175/96
--- NOTE | 2017-01-04 12:53 | NUR ---
PT. GOT UP WITH THERAPY AND STARTED AMBULATING AND COMPLAINED OF NAUSEA AROUND 10:15AM. HE RECEIVED A ZOFRAN 4MG TAB AT THAT TIME FOR THAT DISCOMFORT. NO FURTHER COMPLAINTS OF STOMACH UPSET SINCE THEN. OBSERVING PT.
--- NOTE | 2017-01-04 18:28 | NUR ---
Pt is resting in bed now. No complaints of any discomfort. Call light remains in reach. Watching tv.
[2017-01-04 19:00] VITALS: BP 128/56
--- NOTE | 2017-01-04 19:15 | NUR ---
IN BED, AWAKE. DENIES NEEDS.
--- NOTE | 2017-01-04 21:55 | NUR ---
ASSESSMENT AND HS MEDS COMPLETE. SAYS DOES NOT FEEL WELL. VS ARE STABLE. FSBS 162. PATIENT HS NO SLIDING SCALE ORDERS AND RECEIVED SCHEDULED NOVOLIN 70/30 EARLIER AT DINNER TIME. TOOK ALL SCHEDULED HS MEDS.
--- NOTE | 2017-01-05 00:15 | NUR ---
PATIENT AWAKE. DENIES NEEDS. EMPTIED 375ML LIGHT YELLOW URINE FROM BEDSIDE URINAL.
--- NOTE | 2017-01-05 02:25 | NUR ---
PATIENT AWAKE. EMPTIED 325ML FROM BEDSIDE URINAL.
--- NOTE | 2017-01-05 04:40 | NUR ---
RESTING QUIETLY AT THIS TIME. RESPIRATIONS UNLABORED.
--- NOTE | 2017-01-05 05:24 | NUR ---
RESTING QUIETLY IN BED, EYES CLOSED.
--- NOTE | 2017-01-05 07:00 | NUR ---
Pt was received awake in bed at the beginning of this shift. He was alert and oriented x 3. No complaints at that time. Stable condition observed. Vital signs: Temp. 98.2, pulse 81, resp. 15, b/p 159/101, 02sat. 98%. Will be monitoring him and giving assist as needed.
[2017-01-05 10:23] VITALS: BP 159/101
--- NOTE | 2017-01-05 10:44 | NUR ---
Nutrition Follow Up: Chart reviewed. Pt is eating 99% meal avg on a Diabetic diet. No new wt to assess. +BM 01/03/17. Labs noted - Glucose elevated. Meds noted including Novolin. Pt with excellent po intake at this time. Rec continue current diet. Will continue to send selective menus and honor food preferences. RD following.
--- NOTE | 2017-01-05 18:36 | NUR ---
Pt. was moved from 1108A to 1112A bed this afternoon. Pt. had a large bm today. No verbal complaints or concerns at this time. Call light is in reach.
[2017-01-05 19:00] VITALS: BP 190/95
--- NOTE | 2017-01-05 19:30 | NUR ---
IN BED, AWAKE. DENIES NEEDS.
--- NOTE | 2017-01-05 21:15 | NUR ---
ASSESSMENT AND HS MEDS COMPLETE. DENIES PAIN AFTER RECEIVING ANALGESIC JUST BEFORE 2000HRS.
--- NOTE | 2017-01-05 22:45 | NUR ---
PATIENT JUST UP TO BR TO TOILET. DENIES NEEDS.
--- NOTE | 2017-01-05 23:40 | NUR ---
HAD PATIENT SIGN BED ALARM WAIVER @ [id number]. CURRENTLY RESTING QUIETLY IN BED, EYES CLOSED.
--- NOTE | 2017-01-06 02:05 | NUR ---
EMPTIED 200ML FROM BEDSIDE URINAL. PATIENT CURRENTLY AWAKE. DENIES FURTHER NEEDS.
--- NOTE | 2017-01-06 05:35 | NUR ---
RESTING IN BED. RESPIRATIONS QUIET AND UNLABORED. EMPTIED 100ML FROM BEDSIDE URINAL.
[2017-01-06 07:17] LABS: BASOPHILS 0.4 % (0.0-2.0); EOSINOPHILS 1.3 % (0-7); HEMATOCRIT 36.6 % (42.0-54.0); IMMATURE GRANULOCYTES 0.2 % (0-5); LYMPHOCYTES 26.5 % (15-50); MCH 28.6 pg (26.0-34.0); MCHC 32.8 g/dL (31.0-37.0); MCV 87.1 fL (80.0-100.0); MEAN PLATELET VOLUME 9.5 fL (7.4-10.4); MONOCYTES 8.7 % (2-11); NEUTROPHILS 62.9 % (40-80); PLATELET COUNT 394 10x3/uL (130-400); RDW 12.6 % (11.5-14.5); WBC 9.6 10x3/uL (4.8-10.8)
--- NOTE | 2017-01-06 07:30 | NUR ---
RECEIVED SITTING UP ON SIDE OF BED.DENIES NEEDS.ASSESSMENT COMPLETED.BED IN LOW POSITION,CL IN EASY REACH.HAS SIGNED BED ALARM WAIVER AND IS UP AD ALYSSA.NO SIGNS OF ACUTE DISTRESS.
[2017-01-06 07:32] LABS: ANION GAP 14.5 mmol/L (8-16); CALCIUM 8.9 mg/dL (8.5-10.1); CARBON DIOXIDE 22.5 mmol/L (21.0-32.0); CREATININE - SERUM 1.5 mg/dL (0.6-1.3)
[2017-01-06 09:42] VITALS: BP 182/93
--- NOTE | 2017-01-06 14:57 | NUR ---
CARE TEAM MEETING: PATIENT TENATIVE DISCHARGE DATE IS 01/07/[address] PENA IS PATIENT PCP. WILL ARRANGE FOR HOME HEALTH AND ANY DME THAT IS NEEDED.WILL CONTINUE TO FOLLOW WITH PATIENT
[2017-01-06 19:00] VITALS: BP 153/79
--- NOTE | 2017-01-06 19:30 | NUR ---
PT. IN BED WITH HOB UP FOR COMFORT WATCHING TV. NO VOICED NEEDS AT THIS TIME AND HE HAS HIS CALL LIGHT WITHIN REACH. ASSESSMENT COMPLETED.
--- NOTE | 2017-01-06 22:50 | NUR ---
PT. IN BED WITH HOB UP FOR COMFORT WITH EYES CLOSED AND RESP. EVEN. CALL LIGHT WITHIN REACH.
--- NOTE | 2017-01-07 01:00 | NUR ---
PT. IN BED WITH HOB UP FOR COMFORT WITH EYES CLOSED AND RESP. DEEP AND EVEN. CALL LIGHT IS WITHIN REACH.
--- NOTE | 2017-01-07 03:16 | NUR ---
PT. IN BED WITH HOB UP FOR COMFORT WITH EYES CLOSED AND RESP. DEEP AND EVEN. CALL LIGHT WITHIN REACH.
--- NOTE | 2017-01-07 04:10 | NUR ---
PT. IN BED WITH HOB UP FOR COMFORT WITH EYES CLOSED AND RESP. DEEP AND EVEN. CALL LIGHT WITHIN REACH.
[2017-01-07 07:00] VITALS: BP 153/79
--- NOTE | 2017-01-07 07:30 | NUR ---
RECEIVED RESTING IN BED WITH EYES CLOSED.AROUSES EASILY.ASSESSMENT COMPLETED.NO SIGNS OF ACUTE DISTRESS.DOES RATE PAIN LEFT ARM AND RIBS A 3.TO BE DISCHARGED HOME TODAY.
[2017-01-07] MEDS ORDERED: LISINOPRIL10 MG PO (08:37)
[2017-01-07] MEDS ORDERED: ZESTRIL40 MG PO (08:37)
[2017-01-07] MEDS ORDERED: HYDROCODONE-APA1 TAB PO (08:38)
[2017-01-07 09:00] VITALS: BP 152/76
--- NOTE | 2017-01-07 09:52 | NUR ---
PATIENT DISCHARGING HOME WITH FAMILY TODAY. PATIENT CHOSE [facility] FOR HOME HEALTH. PATIENT HAS A WALKER, NO OTHER DME NEEDED AT THIS TIME. 01/12/17 @ 10:30. PATIENT [facility]ICE FORM FOR HOME HEALTH AND [facility] FORM SIGNED AND FILED IN CHART. PATIENT EDUCATED FOR DEEP BREATHING EXERCISES . ORDERS HAVE BEEN FAXED WITH CONFORMATION RECIEVED
--- NOTE | 2017-01-07 10:03 | NUR ---
DISCHARGE CLINICAL FAXED TO [facility] @ [facility] CLAIM NUMBER [id number]: [phone], WITH CONFORMATION RECIEVED
--- NOTE | 2017-01-07 11:50 | NUR ---
DISCHARGED HOME WITH FAMILY VIA WC TO CAR.HAS ALL PERSONAL ITEMS AND INSTRUCTIONS,PRESCRIPTIONS.
== END 2017-01-07 11:50 | disposition home health service (06) | DRG 560 ==
LOC: D.REHAB 17:03
PROVIDERS: ADMIT Emergency Medicine
DX: S22.42XD Multiple fractures of ribs, left side, subsequent encounter for fracture with routine healing (principal); N17.9 Acute kidney failure, unspecified; N39.0 Urinary tract infection, site not specified; R55 Syncope and collapse; R07.89 Other chest pain; E11.65 Type 2 diabetes mellitus with hyperglycemia; M54.9 Dorsalgia, unspecified; R79.89 Other specified abnormal findings of blood chemistry; K76.0 Fatty (change of) liver, not elsewhere classified; D64.9 Anemia, unspecified; K21.9 Gastro-esophageal reflux disease without esophagitis; V89.2XXS Person injured in unspecified motor-vehicle accident, traffic, sequela; I10 Essential (primary) hypertension; Z87.11 Personal history of peptic ulcer disease

== ENCOUNTER → 2017-01-19 16:26 | Outpatient (CLI) | payer MEDICARE ==
[2016-12-24 14:59] VITALS: BMI 31.1
[~2017-01-19 16:26] MED LIST changes: +HYDROCODONE-APA1 TAB PO; +LISINOPRIL10 MG PO; +ZESTRIL40 MG PO
[2017-01-19 17:25] LABS: CKMB 3.4 U/L (0.0-3.6); CREATINE KINASE 104 UL (21-232)
[2017-01-19 17:26] LABS: TROPONIN-I < 0.017 ng/mL (0.000-0.060)
== END | disposition home or self-care (01) ==
LOC: D.LAB 16:26
PROVIDERS: Family Medicine
DX: M79.602 Pain in left arm (principal)

== ENCOUNTER 2017-01-20 11:11 | Emergency (ER) | payer SELFPAY ==
[2016-12-24 14:59] VITALS: BMI 31.1
[2017-01-20 13:42] LABS: BASOPHILS 0.2 % (0.0-2.0); EOSINOPHILS 0.1 % (0-7); HEMATOCRIT 42.1 % (42.0-54.0); HEMOGLOBIN 14.1 g/dL (13.5-17.5); IMMATURE GRANULOCYTES 0.2 % (0-5); LYMPHOCYTES 20.3 % (15-50); MCH 29.1 pg (26.0-34.0); MCHC 33.5 g/dL (31.0-37.0); MEAN PLATELET VOLUME 9.3 fL (7.4-10.4); MONOCYTES 5.3 % (2-11); NEUTROPHILS 73.9 % (40-80); RBC 4.84 10x6/uL (4.20-6.10); RDW 12.6 % (11.5-14.5); WBC 11.3 10x3/uL (4.8-10.8)
[2017-01-20 13:47] LABS: PLATELET COUNT 287 10x3/uL (130-400)
[2017-01-20 13:58] LABS: ALBUMIN 3.6 g/dL (3.4-5.0); ANION GAP 15.2 mmol/L (8-16); BILIRUBIN - TOTAL 0.39 mg/dL (0.2-1.3); CALCIUM 9.1 mg/dL (8.5-10.1); CARBON DIOXIDE 23.6 mmol/L (21.0-32.0); CREATININE - SERUM 1.8 mg/dL (0.6-1.3); POTASSIUM - SERUM 5.8 mmol/L (3.5-5.1); PROTEIN - SERUM 7.4 g/dL (6.4-8.2)
== END 2017-01-20 17:22 | disposition left against medical advice (07) ==
LOC: D.ER 11:11
PROVIDERS: Emergency Medicine
DX: I10 Essential (primary) hypertension (principal)